=== PATIENT | female | born 1980 | race Caucasian/White ===

== ENCOUNTER 2017-05-11 13:01 | Observation (INO) | payer BC ==
[~2017-05-11] VITALS: Ht 167.6 cm; Wt 68.0 kg
[~2017-05-11 13:01] MED LIST: OMEG10007 PO; PRENTAB26 PO
[2017-05-11] MEDS ORDERED: SODIUM CHLORIDE 0.9% 500ML 500 ML IV STA (13:44)
[2017-05-11] MEDS ORDERED: METOPROLOL TARTRATE 1 MG/ML VIAL IV STA ×2 (13:44→14:52)
--- NOTE | 2017-05-11 13:57 | EMERGENCY ROOM VISIT NOTE ---
History Report prepared by Rosa: Teresita Dyer Under the Supervision of: Dr. Anna Marie Mueller M.D. First contact with patient: 13:39 Chief Complaint: SHORTNESS OF BREATH Stated Complaint: SOB, PALPITATIONS, DIZZY, BLACKOUTS Nursing Triage Summary: Dizzy and heart palpitations since . Numbness in fingers and feet. Shortness of breath at rest. Was supposed to see PCP yesterday but was feeling better so did not go to appt, today palpitations are back. Hx palpitations, but never symptomatic with them. History of Present Illness The patient is a 36 year old female who presents to the Emergency Room with complaints of intermittent heart palpitations for the past week and a half. The patient states that she has a history of palpations, noting that in the past she has been able to alleviate them with hydration. She states that since the Monday after she has intermittently been experiencing the palpitations. The patient states that she also feels dizzy and near syncopal. She denies ever losing consciousness. The patient states that each episode lasts for a few seconds and states that she sits down to alleviate them. The patient states that on Monday she began feeling short of breath. The patient's father states that the patient has a history of myocarditis when she was 11 years old. The patient denies any recent fever, excessive caffeine use, stimulant use, weight loss, or difficulty sleeping. Source of History: patient, parent (father) Onset: past week and a ahlf Position: other (heart) Quality: other (palpitations) Timing: intermittent Associated Symptoms: + SOB Review of Systems See HPI for pertinent positives & negatives. A total of 10 systems reviewed and were otherwise negative. Past Medical & Surgical Medical Problems: (1) Myocarditis (2) Vaginal delivery Surgical Problems: (1) History of appendectomy (2) S/P nasal surgery (3) [place] teeth removed Family History No pertinent family history stated. Social History Smoking Status: Never Smoker Smokeless Tobacco Use: No Alcohol Use: none Drug Use: none Marital Status: Housing Status: lives with significant other Occupation Status: employed Current/Historical Medications No Active Prescriptions or Reported Meds Allergies Coded Allergies: Cephalosporins (Verified Allergy, Mild, 05/11/17) Penicillins (Verified Allergy, Mild, HIVES, 05/11/17) Sulfa Drugs (Verified Allergy, Mild, 05/11/17) Physical Exam Vital Signs Date Time Temp Pulse Resp B/P (MAP) Pulse Ox O2 Delivery O2 Flow Rate FiO2 05/11/17 15:15 73 14 100 05/11/17 15:14 110/73 05/11/17 15:02 96 119/88 05/11/17 15:00 85 23 99 05/11/17 14:48 119/88 05/11/17 14:45 71 15 95 05/11/17 14:39 119/88 05/11/17 14:39 86 119/88 05/11/17 14:30 86 17 05/11/17 14:16 82 20 110/85 100 Room Air 05/11/17 14:10 119 136/82 05/11/17 14:08 122 136/82 100 Room Air 05/11/17 13:53 73 05/11/17 13:11 36.2 95 22 137/90 100 Room Air 05/11/17 13:11 100 Room Air Physical Exam Vital signs reviewed. General: Well-appearing female, in no significant distress. HEENT: No scleral icterus, PERRLA, neck supple. Atraumatic. Cardiovascular: Regular rate and rhythm, occasional ectopy. Pulmonary: Clear to auscultation bilaterally, normal work of breathing. Abdomen: Soft, nontender, nondistended, positive bowel sounds. Musculoskeletal: Atraumatic, no peripheral edema. Neurologic: Patient awake alert and oriented x 3, full strength in all 4 extremities. Cranial nerves 2 through 12 grossly intact. Skin: Warm, dry, no rash Medical Decision & Procedures ER Provider Diagnostic Interpretation: X-ray results as stated below per interpretation by me and the radiologist: SINGLE VIEW CHEST CLINICAL HISTORY: Palpitations. FINDINGS: An AP, portable, upright chest radiograph is compared to study dated 06/13/2007. The examination is mildly degraded by portable technique and patient rotation. The cardiomediastinal silhouette is unremarkable. The lungs and pleural spaces are clear. No pneumothorax is seen. The bony thorax is grossly intact. IMPRESSION: No active disease in the chest. Electronically signed by: Prabhu Penaloza M.D. 05/11/2017 2:16 PM Dictated Date/Time: 05/11/2017 2:15 PM Laboratory Results 05/11/17 13:58 Red Blood Count 5.16, Mean Corpuscular Volume 86.8, Mean Corpuscular Hemoglobin 31.0, Mean Corpuscular Hemoglobin Concent 35.7, Mean Platelet Volume 9.4, Neutrophils (%) (Auto) 58.3, Lymphocytes (%) (Auto) 34.6, Monocytes (%) (Auto) 5.8, Eosinophils (%) (Auto) 0.7, Basophils (%) (Auto) 0.4, Neutrophils # (Auto) 5.80, Lymphocytes # (Auto) 3.44, Monocytes # (Auto) 0.58, Eosinophils # (Auto) 0.07, Basophils # (Auto) 0.04 05/11/17 13:58 Test 05/11/17 13:58 05/11/17 14:01 05/11/17 14:19 White Blood Count 9.95 K/uL (4.8-10.8) Red Blood Count 5.16 M/uL (4.2-5.4) Hemoglobin 16.0 g/dL (12.0-16.0) Hematocrit 44.8 % (37-47) Mean Corpuscular Volume 86.8 fL (80-100) Mean Corpuscular Hemoglobin 31.0 pg (25-34) Mean Corpuscular Hemoglobin Concent 35.7 g/dl (32-36) Platelet Count 281 K/uL (130-400) Mean Platelet Volume 9.4 fL (7.4-10.4) Neutrophils (%) (Auto) 58.3 % Lymphocytes (%) (Auto) 34.6 % Monocytes (%) (Auto) 5.8 % Eosinophils (%) (Auto) 0.7 % Basophils (%) (Auto) 0.4 % Neutrophils # (Auto) 5.80 K/uL (1.4-6.5) Lymphocytes # (Auto) 3.44 K/uL (1.2-3.4) Monocytes # (Auto) 0.58 K/uL (0.11-0.59) Eosinophils # (Auto) 0.07 K/uL (0-0.5) Basophils # (Auto) 0.04 K/uL (0-0.2) RDW Standard Deviation 40.0 fL (36.4-46.3) RDW Coefficient of Variation 12.5 % (11.5-14.5) Immature Granulocyte % (Auto) 0.2 % Immature Granulocyte # (Auto) 0.02 K/uL (0.00-0.02) Anion Gap 8.0 mmol/L (3-11) Est Creatinine Clear Calc Drug Dose 83.3 ml/min Estimated GFR () 98.0 Estimated GFR (Non- 84.6 BUN/Creatinine Ratio 10.3 (10-20) Calcium Level 9.3 mg/dl (8.5-10.1) Magnesium Level 2.2 mg/dl (1.8-2.4) Total Bilirubin 0.6 mg/dl (0.2-1) Direct Bilirubin 0.1 mg/dl (0-0.2) Aspartate Amino Transf (AST/SGOT) 15 U/L (15-37) Alanine Aminotransferase (ALT/SGPT) 24 U/L (12-78) Alkaline Phosphatase 59 U/L (45-117) Total Creatine Kinase 113 U/L (26-192) Creatine Kinase MB 0.8 ng/ml (0.5-3.6) Creatine Kinase MB Ratio 0.7 (0-3.0) Pro-B-Type Natriuretic Peptide 30 pg/ml (0-450) Total Protein 7.9 gm/dl (6.4-8.2) Albumin 4.4 gm/dl (3.4-5.0) Thyroid Stimulating Hormone (TSH) 1.540 uIu/ml (0.300-4.500) Free Thyroxine 1.17 ng/dl (0.80-1.60) Free Triiodothyronine 3.20 pg/ml (2.30-4.20) Bedside D-Dimer 123 ng/mlFEU (0-450) Bedside Troponin I < 0.030 ng/ml (0-0.045) Urine Color YELLOW Urine Appearance CLEAR (CLEAR) Urine pH 8.0 (4.5-7.5) Urine Specific [place] 1.007 (1.000-1.030) Urine Protein NEG (NEG) Urine Glucose (UA) NEG (NEG) Urine Ketones NEG (NEG) Urine Occult Blood NEG (NEG) Urine Nitrite NEG (NEG) Urine Bilirubin NEG (NEG) Urine Urobilinogen NEG (NEG) Urine Leukocyte Esterase NEG (NEG) Laboratory results per my review. Medications Administered Medications (Trade) Dose Ordered Sig/Fahad Route Start Time Stop Time Status Last Admin Dose Admin Sodium Chloride 500 ml @ 999 mls/hr Q31M STAT IV 05/11/17 13:44 05/11/17 14:14 DC 05/11/17 14:15 999 MLS/HR Metoprolol Tartrate (Lopressor Iv) 2.5 mg NOW STAT IV 05/11/17 13:44 05/11/17 13:47 DC 05/11/17 14:10 2.5 MG Potassium Chloride (Kcl 10 Meq / Wtr) 10 meq NOW STAT IV 05/11/17 14:42 05/11/17 14:43 DC 05/11/17 15:17 10 MEQ Metoprolol Tartrate (Lopressor Iv) 5 mg NOW STAT IV 05/11/17 14:52 05/11/17 14:53 DC 05/11/17 15:02 5 MG Potassium Chloride (Klor-Con M10) 40 meq STK-MED ONCE .ROUTE 05/11/17 14:54 05/11/17 14:55 DC 05/11/17 15:05 40 MEQ ECG Indication: palpitations Rate (beats per minute): 83 Rhythm: sinus rhythm Findings: PAC, other (sinus pause) ED Course 1342: Past medical records reviewed. The patient was evaluated in room A4B. A complete history and physical examination was performed. 1344: Ordered Lopressor IV 2.5 mg IV, Sodium Chloride 500 ml @ 999 mls/hr IV. 1442: Ordered Potassium Chloride 40 meq PO, Potassium Chloride 10 meq IV. 1449: I reevaluated the patient and she is resting comfortably. I discussed the test results with her and I discussed the treatment plan. She verbalized complete understanding and agreement. Cardiology will be consulted. 1456: I discussed the patients case with Dr. Maxwell, Cardiology. He states that he will come evaluate the patient in the department. Medical Decision Differential diagnosis: Etiologies such as premature contractions, electrolyte abnormality, cardiac dysrhythmia, thyroid dysfunction, pulmonary embolism, infection, gastrointestinal, as well as others were entertained. This patient was evaluated and appeared to be in no significant distress. Physical examination reveals occasional tachycardia with ectopy. court monitor is consistent with a sinus rhythm with PACs, there is occasional runs of tachycardia. It appears to be a narrow complex. Laboratory work reveals only a mild hypokalemia at 3.1. Chest x-ray is clear. D-dimer and troponin are normal. She was given 2.5 mg of IV metoprolol with minimal effect. She was given additional 5 mg of IV metoprolol. The patient was discussed with Dr. Maxwell of cardiology who agreed to evaluate the patient in the emergency department. He has recommended evaluation by the internal medicine service for observation and he will likely managed the patient with beta blockers. Patient family are aware of the plan and agree. Medication Reconcilliation Current Medication List: was personally reviewed by me Consults Time Called: [phone] Consulting Physician: Dr. Maxwell, Cardiology Returned Call: [phone] I discussed the patients case with Dr. Maxwell, Cardiology. He states that he will come evaluate the patient in the department. Impression Primary Impression: Atrial tachycardia, paroxysmal Additional Impression: Hypokalemia Scribe Attestation The scribe's documentation has been prepared under my direction and personally reviewed by me in its entirety. I confirm that the note above accurately reflects all work, treatment, procedures, and medical decision making performed by me. Departure Information Prescriptions No Active Prescriptions or Reported Meds Referrals Keturah Juarez M.D. (MEDICAL) (PCP) Patient Instructions [facility] Problem Qualifiers
[2017-05-11] MEDS ORDERED: METOPROLOL TARTRATE 1 MG/ML VIAL ONE (14:07)
[2017-05-11 14:11] LABS: BASO % 0.4 %; BASO ABS # 0.04 K/uL (0-0.2); COMPLETE YES; EOS % 0.7 %; HEMATOCRIT 44.8 % (37-47); IG% 0.2 %; LYMPH % 34.6 %; LYMPH ABS # 3.44 K/uL (1.2-3.4); MEAN CELL VOLUME 86.8 fL (80-100); MEAN CORPUSCULAR HGB CONC 35.7 g/dl (32-36); MEAN PLATELET VOLUME 9.4 fL (7.4-10.4); MONO % 5.8 %; NEUT % 58.3 %; PLATELET COUNT 281 K/uL (130-400); RED BLOOD COUNT 5.16 M/uL (4.2-5.4); WHITE BLOOD COUNT 9.95 K/uL (4.8-10.8)
--- NOTE | 2017-05-11 14:18 | DIAGNOSTIC IMAGING REPORT ---
SINGLE VIEW CHEST CLINICAL HISTORY: Palpitations. FINDINGS: An AP, portable, upright chest radiograph is compared to study dated 06/13/2007. The examination is mildly degraded by portable technique and patient rotation. The cardiomediastinal silhouette is unremarkable. The lungs and pleural spaces are clear. No pneumothorax is seen. The bony thorax is grossly intact. IMPRESSION: No active disease in the chest. Electronically signed by: Prabhu Penaloza M.D. 05/11/2017 2:16 PM Dictated Date/Time: 05/11/2017 2:15 PM
[2017-05-11 14:21] LABS: POINT OF CARE TROPONIN I < 0.030 ng/ml (0-0.045)
[2017-05-11 14:29] LABS: BUN/CREATININE RATIO 10.3 (10-20); CALCIUM 9.3 mg/dl (8.5-10.1); CREATININE 0.89 mg/dl (0.60-1.20); MAGNESIUM 2.2 mg/dl (1.8-2.4); POTASSIUM 3.1 mmol/L (3.5-5.1)
[2017-05-11 14:32] LABS: URINE APPEARANCE CLEAR (CLEAR); URINE BILIRUBIN NEG (NEG); URINE COLOR YELLOW; URINE NITRITE NEG (NEG); URINE SPECIFIC GRAVITY 1.007 (1.000-1.030); UROBILINOGEN NEG (NEG); ZZUR CULT IF INDIC CLEAN CATCH NO
[2017-05-11 14:35] LABS: MANUAL MICROSCOPIC REQUIRED? NO; REVIEW REQ? NO
[2017-05-11 14:38] LABS: CKMB/CK RATIO 0.7 (0-3.0); THYROID STIMULATING HORMONE 1.54 uIu/ml (0.300-4.500)
[2017-05-11] MEDS ORDERED: POTASSIUM CHLORIDE 20 MEQ TABCR PO STA (14:42)
[2017-05-11] MEDS ORDERED: POTASSIUM CHLORIDE 10 MEQ / 100ML WTR IV STA (14:42)
[2017-05-11] MEDS ORDERED: POTASSIUM CHLORIDE 10 MEQ TABCR ONE (14:54)
[2017-05-11] MEDS ORDERED: ONDANSETRON INJ 2 MG/ML 2 ML VIAL IV PRN (16:30)
[2017-05-11] MEDS ORDERED: ACETAMINOPHEN 325 MG TAB PO PRN (16:30)
--- NOTE | 2017-05-11 16:46 | CARDIOLOGY CONSULTATION ---
DATE OF CONSULTATION: 05/11/2017 REFERRING PHYSICIAN: Dr. Anna Marie Mueller. REASON FOR CONSULTATION: Palpitations and PACs. CHIEF COMPLAINT ON ADMISSION: Palpitations. HISTORY OF PRESENT ILLNESS: Ms. Gomez is a 36-year-old female with a history of myocarditis at age 11 as well as longstanding palpitations. The patient states she developed significant palpitations the day after Thanksgiving. These palpitations have waxed and waned over the past 2 weeks. She notes approximately 3 near syncopal episodes during that time. These 3 episodes occurred while standing. They are often associated with chest fluttering. In the ER, her telemetry demonstrates frequent PACs with underlying sinus rhythm. There are short salvos of atrial tachycardia, which are nonsustained. The patient is aware of her heart rate and describes them as fluttering and palpitations. Denies any lightheadedness, dizziness, or near syncope currently. Describes her chest sensation as a fluttering. Denies any chest pain or pressure. Denies any exertional shortness of breath. She is quite active and exercises regularly. She performed a workout yesterday, which is her usual routine. She notes no restrictions, no shortness of breath, or exertional chest pain. No associated exertional lightheadedness, dizziness, syncope or near syncope. Her most recent resting 2D transthoracic echo was performed in 2014, demonstrating normal left ventricular systolic function without significant valvular heart disease. Currently, the patient is resting comfortably. Her family is at bedside. She offers no other concerns/complaints at this time. She has received a total of 7.5 mg of intravenous metoprolol in the ER with no significant change in her rhythm. REVIEW OF SYSTEMS: The pertinent positive noted above. A comprehensive 10-system review is otherwise negative. PAST MEDICAL HISTORY: 1. Myocarditis at age 11 attributed to a viral etiology. 2. depression. PAST SURGICAL HISTORY: 1. Heart biopsies at the time of myocarditis. 2. [place] tooth extraction. 3. Appendectomy. SOCIAL HISTORY: She is with 3 children. Occasional alcohol use. Denies any tobacco use. Denies any use of any stimulants or excessive caffeine intake. FAMILY HISTORY: Negative for premature CAD or sudden cardiac . ALLERGIES: CEPHALOSPORINS, PENICILLIN, AND SULFA. CURRENT OUTPATIENT MEDICATIONS: Proventil inhaler as needed. The patient denies any use of OTC medications. ECG ON ADMISSION: Sinus rhythm, nonspecific ST abnormality. CHEST X-RAY: No acute disease. LABORATORY DATA: White blood cell count 9.95, hemoglobin is 16.0, and platelet count is 281. D-dimer 123. Sodium 137, potassium 3.1, chloride 104, CO2 of 26, BUN is 9, and creatinine 0.89. Troponin undetectable. TSH 1.540. Urinalysis is normal. PHYSICAL EXAMINATION: VITAL SIGNS: Temperature is 36.2 degrees centigrade, pulse 73 beats per minute and regular, respiratory rate is 14 breaths per minute, blood pressure is 110/73, and SaO2 is 100% on room air. GENERAL: NAD, awake, alert and oriented x3. She is pleasant and cooperative. HEENT: Mucous membranes are moist. No scleral icterus. Conjunctivae pink. NECK: Supple. There is no JVD, no HJR, and no carotid bruit. HEART: Irregular with a normal S1 and S2. There is no murmur, rub or gallop. LUNGS: Clear without rales, rhonchi or wheeze. ABDOMEN: Soft and nontender. No rebound or guarding. Normal bowel sounds. EXTREMITIES: Warm and dry. There is no clubbing, cyanosis, or edema. NEUROLOGIC: Demonstrates no focal motor deficit. FINAL IMPRESSION: 1. A 36-year-old female with longstanding history of palpitations, demonstrates evidence of frequent paroxysmal atrial contractions, nonsustained episodes of paroxysmal atrial tachycardia currently. Symptoms have mildly improved with intravenous beta-kieran. 2. Three episodes of near syncope over the past 14 days -- occasional pauses, approximately 2 seconds noted on monitor. No recurrent dizziness associated with current episodes of nonsustained atrial tachycardia. 3. History of myocarditis at age 11. 4. Hypokalemia. PLAN AND RECOMMENDATIONS: Potassium will be replaced as needed. Repeat basic metabolic panel in the a.m. A repeat resting 2D transthoracic echo will also be performed. We will initiate low dose beta-kieran therapy and monitor overnight on telemetry. Lyme screening test will be performed for completeness. All questions were answered to the patient's satisfaction. Thank you for allowing me to take part in the care of your patient.
--- NOTE | 2017-05-11 16:50 | History and Physical ---
History & Physical Date & Time of Service: May 11, 2017 at 16:35 Chief Complaint: Sob, Palpitations, Dizzy, Blackouts Primary Care Physician: Keturah Juarez M.D. (MEDICAL) History of Present Illness Source: patient, clinic records, hospital records This is a 36yo F with no known PMH who presents with intermittent heart palpitations over the past 1.5 weeks. During a Thanksgiving family gathering, patient states that she noticed sudden onset palpitations associated with lightheadedness and "blacked out" vision. Denies LOC. Was able to sit down, drink water and palpitations resolved. Described the episode as lasting for a few seconds and before resolving. This past Monday, patient was at work when she experienced the same symptoms of palpitations, lightheadedness, near- syncope and nausea. Also endorses feeling SOB during episodes. They occurred intermittently for ~7 hours. [place] normal on Monday and was able to do a home workout without symptoms. Today, while at work, patient experienced another episode and had her co-worker bring her to ED for further evaluation. Currently endorses lightheadedness and palpitations with movement but is asymptomatic at rest. Denies near-syncope, visual changes, chest pain, SOB, abd pain, nausea, vomiting, LE swelling. States that she has had palpitations in the past but they just came and went without additional symptoms. Denies increased caffeine intake, stimulant use, increased anxiety or recent illness. Has had alcohol once in the past 2 weeks and it did not correlate with symptoms. Has history of myocarditis at age 11. No other cardiac history Past Medical/Surgical History Medical Problems: (1) Myocarditis Status: Resolved (2) Vaginal delivery Status: Resolved Surgical Problems: (1) History of appendectomy Status: Resolved (2) S/P nasal surgery Status: Resolved (3) [place] teeth removed Status: Resolved Family History Denies any family history of heart disease, arrhythmias, DM, kidney disease. Social History Smoking Status: Never Smoker Smokeless Tobacco Use: No Alcohol Use: occasionally Drug Use: none Marital Status: Housing status: lives with family Occupational Status: employed Immunizations History of Influenza Vaccine: Unknown History of Tetanus Vaccine?: Unknown Tetanus Immunization Date: Aug 04, 2007 History of Pneumococcal: Unknown History of Hepatitis B Vaccine: Unknown Multi-Drug Resistant Organisms History of MDRO: No Allergies Coded Allergies: Cephalosporins (Verified Allergy, Mild, 05/11/17) Penicillins (Verified Allergy, Mild, HIVES, 05/11/17) Sulfa Drugs (Verified Allergy, Mild, 05/11/17) Home Medications No Active Prescriptions or Reported Meds Review of Systems Ten systems reviewed and negative except as noted in the HPI. Physical Exam Vital Signs Date Time Temp Pulse Resp B/P (MAP) Pulse Ox O2 Delivery O2 Flow Rate FiO2 05/11/17 15:15 73 14 100 05/11/17 15:14 110/73 05/11/17 15:02 96 119/88 05/11/17 15:00 85 23 99 05/11/17 14:48 119/88 05/11/17 14:45 71 15 95 05/11/17 14:39 119/88 05/11/17 14:39 86 119/88 05/11/17 14:30 86 17 05/11/17 14:16 82 20 110/85 100 Room Air 05/11/17 14:10 119 136/82 05/11/17 14:08 122 136/82 100 Room Air 05/11/17 13:53 73 05/11/17 13:11 36.2 95 22 137/90 100 Room Air 05/11/17 13:11 100 Room Air General Appearance: WD/WN, + mild distress (anxious ) Head: normocephalic, atraumatic Eyes: normal inspection, PERRL, sclerae normal ENT: normal ENT inspection, hearing grossly normal, pharynx normal (moist mucous membranes) Neck: supple, thyroid normal, trachea midline Respiratory/Chest: chest non-tender, lungs clear, normal breath sounds, no respiratory distress, no accessory muscle use Cardiovascular: regular rate, rhythm, no murmur, normal peripheral pulses Abdomen/GI: non tender, soft, no organomegaly Back: normal inspection Extremities/Musculoskelatal: normal inspection, no calf tenderness, no pedal edema Neurologic/Psych: no motor/sensory deficits, alert, normal mood/affect, oriented x 3 Skin: normal color, warm/dry, no rash Diagnostics Laboratory Results Results Past 24 Hours Test 05/11/17 13:58 05/11/17 14:01 05/11/17 14:19 Range/Units White Blood Count 9.95 4.8-10.8 K/uL Red Blood Count 5.16 4.2-5.4 M/uL Hemoglobin 16.0 12.0-16.0 g/dL Hematocrit 44.8 37-47 % Mean Corpuscular Volume 86.8 80-100 fL Mean Corpuscular Hemoglobin 31.0 25-34 pg Mean Corpuscular Hemoglobin Concent 35.7 32-36 g/dl Platelet Count 281 130-400 K/uL Mean Platelet Volume 9.4 7.4-10.4 fL Neutrophils (%) (Auto) 58.3 % Lymphocytes (%) (Auto) 34.6 % Monocytes (%) (Auto) 5.8 % Eosinophils (%) (Auto) 0.7 % Basophils (%) (Auto) 0.4 % Neutrophils # (Auto) 5.80 1.4-6.5 K/uL Lymphocytes # (Auto) 3.44 1.2-3.4 K/uL Monocytes # (Auto) 0.58 0.11-0.59 K/uL Eosinophils # (Auto) 0.07 0-0.5 K/uL Basophils # (Auto) 0.04 0-0.2 K/uL RDW Standard Deviation 40.0 36.4-46.3 fL RDW Coefficient of Variation 12.5 11.5-14.5 % Immature Granulocyte % (Auto) 0.2 % Immature Granulocyte # (Auto) 0.02 0.00-0.02 K/uL Sodium Level 137 136-145 mmol/L Potassium Level 3.1 3.5-5.1 mmol/L Chloride Level 104 98-107 mmol/L Carbon Dioxide Level 26 21-32 mmol/L Anion Gap 8.0 3-11 mmol/L Blood Urea Nitrogen 9 7-18 mg/dl Creatinine 0.89 0.60-1.20 mg/dl Est Creatinine Clear Calc Drug Dose 83.3 ml/min Estimated GFR () 98.0 Estimated GFR (Non- 84.6 BUN/Creatinine Ratio 10.3 10-20 Random Glucose 105 70-99 mg/dl Calcium Level 9.3 8.5-10.1 mg/dl Magnesium Level 2.2 1.8-2.4 mg/dl Total Bilirubin 0.6 0.2-1 mg/dl Direct Bilirubin 0.1 0-0.2 mg/dl Aspartate Amino Transf (AST/SGOT) 15 15-37 U/L Alanine Aminotransferase (ALT/SGPT) 24 12-78 U/L Alkaline Phosphatase 59 45-117 U/L Total Creatine Kinase 113 26-192 U/L Creatine Kinase MB 0.8 0.5-3.6 ng/ml Creatine Kinase MB Ratio 0.7 0-3.0 Pro-B-Type Natriuretic Peptide 30 0-450 pg/ml Total Protein 7.9 6.4-8.2 gm/dl Albumin 4.4 3.4-5.0 gm/dl Thyroid Stimulating Hormone (TSH) 1.540 0.300-4.500 uIu/ml Free Thyroxine 1.17 0.80-1.60 ng/dl Free Triiodothyronine 3.20 2.30-4.20 pg/ml Bedside D-Dimer 123 0-450 ng/mlFEU Bedside Troponin I < 0.030 0-0.045 ng/ml Urine Color YELLOW Urine Appearance CLEAR CLEAR Urine pH 8.0 4.5-7.5 Urine Specific [place] 1.007 1.000-1.030 Urine Protein NEG NEG Urine Glucose (UA) NEG NEG Urine Ketones NEG NEG Urine Occult Blood NEG NEG Urine Nitrite NEG NEG Urine Bilirubin NEG NEG Urine Urobilinogen NEG NEG Urine Leukocyte Esterase NEG NEG CXR normal EKG Initial EKG at 13:44 Normal sinus rhythm with sinus arrhythmia Nonspecific ST and T wave abnormality Abnormal ECG When compared with ECG of 13-JUN-2007 10:56, T wave inversion now evident in Anterior leads Repeat EKG at 13:58 Atrial fibrillation at [address] abnormality Impression Assessment and Plan This is a 36yo F with no known PMH who presents with intermittent heart palpitations over the past 1.5 weeks. Atrial arrhythmia: -History of asymptomatic palpitations -Palpitations with near-syncope, lightheadedness, SOB over past 1.5 weeks -EKGs, monitor with frequent PACs, non-sustained atrial tachycardia today -Symptoms and rate improved with IV Lopressor -Replaced potassium. Recheck as replace as needed -BMP in AM -Cardio consulted: -Initiate low dose beta-kieran therapy and monitor overnight on telemetry -Echo -Lyme screening pending DVT Ppx: Genaro kebede Code status: FULL PCP: Larry Dispo: Plan to return home once medically stable Patient seen in collaboration with Dr. Dorman. Please see addendum. ATTENDING ADDENDUM care coordinated with ALISA Ash please refer to her notes for full details, I agree with her notes patient seen and examined, records reviewed by myself as well on exam, patient seen resting in bed, comfortable sinus rhythm, HR 50s in Tele monitor denies dizziness, chest pain, dyspnea, palpitations so far no other symptoms VS noted and reviewed oriented x3, not in distress, speaks in sentences with no effort nor accessory muscle use bradycardic, regular rhythm, no murmurs clear breath sounds bilaterally non distended, soft, nontender no bipedal edema, erythema, warmth no neuro deficits Hg 16 K 3.1 ASSESSMENT/PLAN> PALPITATIONS POSSIBLE PACS, ATRIAL TACHYCARDIA - echo pending replace K ff up Lyme screen - Metoprolol 12.5mg po BID started appreciate Cardiology SVC recommendations other diagnoses and plan of care as per ALISA Ash's notes Pérez Dorman MD Level of Care Telemetry Resuscitation Status FULL RESUSCITATION VTE Prophylaxis VTE Risk Assessment Done? Y/N: Yes Risk Level: Low Given or contraindicated: ZackEAlmas Stephenson Social Service Consult None Apply
[2017-05-11 16:59] LABS: LYME DISEASE AB IGM NEG (NEG)
[2017-05-11 17:00] LABS: LYME DISEASE AB IGG NEG (NEG)
[2017-05-11 18:45] VITALS: BP 121/74; PULSE 60; TEMP 36.6; O2SAT 100
[2017-05-11] MEDS ORDERED: IV FLUIDS COMPLETED PRN (20:45)
[2017-05-11] MEDS: METOPROLOL TARTRATE 25 MG TAB PO SCH (20:49)
[2017-05-11 21:57] VITALS: BP 121/74; PULSE 60; TEMP 36.6; O2SAT 100; Ht 167.6 cm; Wt 68.0 kg
[2017-05-12] VITALS: BP 99/58; PULSE 76; TEMP 36.9; O2SAT 97
[2017-05-12 03:34] VITALS: BP 109/64; PULSE 74; TEMP 36.9; O2SAT 97
[2017-05-12 06:02] LABS: HEMATOCRIT 42.5 % (37-47); MEAN CELL VOLUME 88.7 fL (80-100); MEAN CORPUSCULAR HEMOGLOBIN 29.6 pg (25-34); MEAN CORPUSCULAR HGB CONC 33.4 g/dl (32-36); MEAN PLATELET VOLUME 9.7 fL (7.4-10.4); PLATELET COUNT 257 K/uL (130-400); RED BLOOD COUNT 4.79 M/uL (4.2-5.4); WHITE BLOOD COUNT 5.39 K/uL (4.8-10.8)
[2017-05-12 06:28] LABS: BUN/CREATININE RATIO 9.9 (10-20); CALCIUM 8.9 mg/dl (8.5-10.1); CREATININE 0.8 mg/dl (0.60-1.20); POTASSIUM 4.2 mmol/L (3.5-5.1)
[2017-05-12 07:44] VITALS: BP 105/65; PULSE 51; TEMP 36.5; O2SAT 98
[2017-05-12] MEDS: METOPROLOL TARTRATE 25 MG TAB PO SCH (07:52)
--- NOTE | 2017-05-12 10:12 | ECHOCARDIOGRAM REPORT ---
*NOTICE TO RECEIVING LIBERTARIAN AGENCY This information is strictly Confidential and protected under [place] law. [place] law prohibits you from making any further disclosure of this information unless further disclosure is expressly permitted by the written consent of the person to whom it pertains or is authorized by law. A general authorization for the release of medical or other information is not sufficient for this purpose. Hospital accepts no responsibility if the information is made available to any other person, INCLUDING THE PATIENT. Interpretation Summary * Name: JAYLONJOHANNA Study Date: 05/12/2017 06:31 AM BP: 109/64 mmHg * Patient Location: [facility] HR: 74 * : 1980 (M/d/yyyy) Gender: Female Height: 66 in * Age: 36 yrs Ethnicity: CA Weight: 153 lb * Ordering Physician: Rosalio Maxwell DO * Performed By: Johanna Juarez RDCS * * Reason For Study: PALPITATIONS * BSA: 1.8 m2 * The study was technically adequate. * There is no comparison study available. * -- Conclusions -- * Ejection Fraction = 65-70%. * The left ventricular wall motion is normal. * Pulse wave TDI of the anterior and posterior mitral annulas demonstrates normal LV relaxation * No significant valvular disease. Procedure Details * A complete two-dimensional transthoracic echocardiogram was performed (2D, M-mode, Doppler and color flow Doppler). Left Ventricle * The left ventricle is normal in size. * There is no thrombus. * There is normal left ventricular wall thickness. * Ejection Fraction = 65-70%. * Left ventricular systolic function is normal. * The left ventricular wall motion is normal. Right Ventricle * The right ventricle is normal size. * The right ventricular systolic function is normal as assessed by tricuspid annular plane systolic excursion (TAPSE) (normal >1.5 cm). Atria * The left atrial size is normal. * Right atrial size is normal. * There is no evidence of atrial septal defect, but resolution does not allow assessment for a patent foramen ovale. Mitral Valve * The mitral valve is normal. * There is no mitral valve stenosis. * Significant mitral regurgitation is absent. Tricuspid Valve * The tricuspid valve is normal. * There is no tricuspid stenosis. * Significant tricuspid regurgitation is absent. Aortic Valve * The aortic valve is trileaflet. * Aortic stenosis is absent. * There is no significant aortic regurgitation. Pulmonic Valve * The pulmonary valve is not well seen, but the Doppler examination is normal without significant regurgitation or stenosis. Great Vessels * The aortic root and proximal ascending aorta are normal sized. Pericardium/Pleural * There is no pericardial effusion. Great Vessels * Normal inferior vena cava diameter and respiratory variation suggests normal central venous pressure. Left Ventricular Diastolic Function * Pulse wave TDI of the anterior and posterior mitral annulas demonstrates normal LV relaxation MMode 2D Measurements and Calculations IVSd 1.2 cm IVSs 1.6 cm LVIDd 4.1 cm LVIDs 2.1 cm LVPWd 1.0 cm LVPWs 1.7 cm IVS/LVPW 1.2 FS 47.9 % EDV(Teich) 73.1 ml ESV(Teich) 14.8 ml EF(Teich) 79.8 % EDV(cubed) 67.6 ml ESV(cubed) 9.5 ml EF(cubed) 85.9 % % IVS thick 31.7 % % LVPW thick 70.3 % LV mass(C)d 149.0 grams LV mass(C)dI 83.5 grams/m\S\2 LV mass(C)s 123.3 grams LV mass(C)sI 69.1 grams/m\S\2 SV(Teich) 58.4 ml SI(Teich) 32.7 ml/m\S\2 SV(cubed) 58.1 ml SI(cubed) 32.5 ml/m\S\2 ACS 1.3 cm LA dimension 2.7 cm asc Aorta Diam 1.8 cm LVOT diam 1.4 cm LVOT area 1.6 cm\S\2 LVAd ap4 31.4 cm\S\2 LVLd ap4 8.5 cm EDV(MOD-sp4) 96.9 ml EDV(sp4-el) 98.1 ml LVAs ap4 13.2 cm\S\2 LVLs ap4 6.6 cm ESV(MOD-sp4) 21.8 ml ESV(sp4-el) 22.2 ml EF(MOD-sp4) 77.5 % EF(sp4-el) 77.3 % LVAd ap2 30.1 cm\S\2 LVLd ap2 8.1 cm EDV(MOD-sp2) 91.2 ml EDV(sp2-el) 95.1 ml LVAs ap2 13.1 cm\S\2 LVLs ap2 6.2 cm ESV(MOD-sp2) 22.6 ml ESV(sp2-el) 23.2 ml EF(MOD-sp2) 75.2 % EF(sp2-el) 75.6 % LVLd %diff -5.58 % EDV(MOD-bp) 95.3 ml LVLs %diff -60 % ESV(MOD-bp) 22.6 ml EF(MOD-bp) 76.3 % SV(MOD-sp4) 75.1 ml SI(MOD-sp4) 42.1 ml/m\S\2 SV(MOD-sp2) 68.6 ml SI(MOD-sp2) 38.4 ml/m\S\2 SV(MOD-bp) 72.7 ml SI(MOD-bp) 40.7 ml/m\S\2 SV(sp4-el) 75.9 ml SI(sp4-el) 42.5 ml/m\S\2 SV(sp2-el) 71.8 ml SI(sp2-el) 40.2 ml/m\S\2 Doppler Measurements and Calculations MV E max jerry 101.4 cm/sec MV A max jerry 45.3 cm/sec MV E/A 2.2 MV dec time 0.19 sec Ao V2 max 165.9 cm/sec Ao max PG 11.0 mmHg Ao max PG (full) 3.1 mmHg SULEMA(V,A) 1.4 cm\S\2 SULEMA(V,D) 1.4 cm\S\2 LV V1 max PG 7.9 mmHg LV V1 max 140.2 cm/sec PA V2 max 76.0 cm/sec PA max PG 2.3 mmHg TR max jerry 219.4 cm/sec
--- NOTE | 2017-05-12 11:10 | Cardiology Follow-Up ---
Subjective General Date of Service: May 12, 2017. Pt evaluation today including: conversation w/ patient, conversation w/ family , physical exam, chart review, lab review, review of studies, review of inpatient medication list History of Present Illness The patient is a 36 year old female seen in follow-up. No recurrent atrial tachycardia overnight. Sinus rhythm with sinus arrhythmia on telemetry. Patient is feeling much better. Palpitations have resolved. Repeat potassium level within normal limits this morning. She did not receive her a.m. dose of metoprolol due to bradycardia. Denies any lightheadedness or dizziness. 2-D echocardiogram within normal limits. Allergies Coded Allergies: Cephalosporins (Verified Allergy, Mild, 05/11/17) Penicillins (Verified Allergy, Mild, HIVES, 05/11/17) Sulfa Drugs (Verified Allergy, Mild, 05/11/17) Social History Smoking Status: Never Smoker Hx Tobacco Use In Past Year?: No Hx Alcohol Use - Type And Amou: Yes (wine/beer, occasional) Hx Substance Use - Type And Am: No Problem List Medical Problems: (1) Atrial tachycardia, paroxysmal Status: Acute (2) Hypokalemia Status: Acute Review of Systems Respiratory: No cough, No sputum, No wheezing, No shortness of breath, No dyspnea on exertion, No dyspnea at rest, No hemoptysis Cardiac: No chest pain, No orthopnea, No PND, No edema, No claudication, No palpitations Physical Exam Vital Signs Last Vital Signs Documentation Date Time Temp Pulse Resp B/P (MAP) Pulse Ox O2 Delivery O2 Flow Rate FiO2 05/12/17 08:00 Room Air 05/12/17 07:44 36.5 51 16 105/65 (78) 98 Physical Exam Constitutional: General Apperance: heathly-appearing Level of Distress: NAD Head: normocephalic, atraumatic Neck: supple, trachea midline Lungs: Auscultation: breath sounds normal, no wheezing, no rales/crackles, no rhonchi Cardiovascular: Heart Auscultation: RRR, normal S1, normal S2, no murmurs, no rubs, no gallops Peripheral Pulses: Carotid Pulse: normal on the left, normal on the right Radial Pulse: normal on the left, normal on the right Abdomen: Bowel Sounds: normal Inspection & Palpation: soft, non-distended, no tenderness, guarding & rebound Extremities: no cyanosis, no edema, no clubbing, no ulcers Neurologic: Gait & Station: pertinent finding (no focal deficit) Cranial Nerves: grossly intact Assessment and Plan Assessment and Plan FINAL IMPRESSION: 1. A 36-year-old female admitted with palpitations secondary to paroxysmal atrial tachycardia and sensed atrial ectopy. -PACs and paroxysmal atrial tachycardia have resolved with potassium supplementation and low dose beta kieran therapy 2. History of myocarditis at age 11. 3. Hypokalemia. PLAN AND RECOMMENDATIONS: I had a long discussion with the patient regarding the natural history, pathophysiology of atrial tachycardia, PACs, as well as the results of her normal resting 2-D transthoracic echo. Currently in sinus rhythm with sinus arrhythmia. Her palpitations have resolved. Encouraged her to increase intake of foods containing potassium. Encouraged her to maintain adequate hydration and avoid excessive caffeine intake. Resting sinus bradycardia noted patient currently asymptomatic. She'll be given a prescription for low-dose metoprolol tartrate and utilize this medication on an as-needed basis up to twice daily. All questions answered to satisfaction of both the patient and her . I will arrange for outpatient cardiology follow-up in 2 weeks. We will sign off at this time. Thank you for allowing me to participate in the care of your patient. Laboratory Results Last 24 Hours Test 05/11/17 13:58 05/11/17 14:01 05/11/17 14:19 05/11/17 21:03 White Blood Count 9.95 K/uL Red Blood Count 5.16 M/uL Hemoglobin 16.0 g/dL Hematocrit 44.8 % Mean Corpuscular Volume 86.8 fL Mean Corpuscular Hemoglobin 31.0 pg Mean Corpuscular Hemoglobin Concent 35.7 g/dl Platelet Count 281 K/uL Mean Platelet Volume 9.4 fL Neutrophils (%) (Auto) 58.3 % Lymphocytes (%) (Auto) 34.6 % Monocytes (%) (Auto) 5.8 % Eosinophils (%) (Auto) 0.7 % Basophils (%) (Auto) 0.4 % Neutrophils # (Auto) 5.80 K/uL Lymphocytes # (Auto) 3.44 K/uL Monocytes # (Auto) 0.58 K/uL Eosinophils # (Auto) 0.07 K/uL Basophils # (Auto) 0.04 K/uL RDW Standard Deviation 40.0 fL RDW Coefficient of Variation 12.5 % Immature Granulocyte % (Auto) 0.2 % Immature Granulocyte # (Auto) 0.02 K/uL Sodium Level 137 mmol/L Potassium Level 3.1 mmol/L 4.0 mmol/L Chloride Level 104 mmol/L Carbon Dioxide Level 26 mmol/L Anion Gap 8.0 mmol/L Blood Urea Nitrogen 9 mg/dl Creatinine 0.89 mg/dl Est Creatinine Clear Calc Drug Dose 83.3 ml/min Estimated GFR () 98.0 Estimated GFR (Non- 84.6 BUN/Creatinine Ratio 10.3 Random Glucose 105 mg/dl Calcium Level 9.3 mg/dl Magnesium Level 2.2 mg/dl Total Bilirubin 0.6 mg/dl Direct Bilirubin 0.1 mg/dl Aspartate Amino Transf (AST/SGOT) 15 U/L Alanine Aminotransferase (ALT/SGPT) 24 U/L Alkaline Phosphatase 59 U/L Total Creatine Kinase 113 U/L Creatine Kinase MB 0.8 ng/ml Creatine Kinase MB Ratio 0.7 Pro-B-Type Natriuretic Peptide 30 pg/ml Total Protein 7.9 gm/dl Albumin 4.4 gm/dl Thyroid Stimulating Hormone (TSH) 1.540 uIu/ml Free Thyroxine 1.17 ng/dl Free Triiodothyronine 3.20 pg/ml Lyme Disease IgG Antibody NEG Lyme Disease IgM Antibody NEG Bedside D-Dimer 123 ng/mlFEU Bedside Troponin I < 0.030 ng/ml Urine Color YELLOW Urine Appearance CLEAR Urine pH 8.0 Urine Specific [place] 1.007 Urine Protein NEG Urine Glucose (UA) NEG Urine Ketones NEG Urine Occult Blood NEG Urine Nitrite NEG Urine Bilirubin NEG Urine Urobilinogen NEG Urine Leukocyte Esterase NEG Test 05/12/17 05:30 White Blood Count 5.39 K/uL Red Blood Count 4.79 M/uL Hemoglobin 14.2 g/dL Hematocrit 42.5 % Mean Corpuscular Volume 88.7 fL Mean Corpuscular Hemoglobin 29.6 pg Mean Corpuscular Hemoglobin Concent 33.4 g/dl RDW Standard Deviation 41.0 fL RDW Coefficient of Variation 12.6 % Platelet Count 257 K/uL Mean Platelet Volume 9.7 fL Sodium Level 141 mmol/L Potassium Level 4.2 mmol/L Chloride Level 109 mmol/L Carbon Dioxide Level 26 mmol/L Anion Gap 6.0 mmol/L Blood Urea Nitrogen 8 mg/dl Creatinine 0.80 mg/dl Est Creatinine Clear Calc Drug Dose 92.7 ml/min Estimated GFR () 111.5 Estimated GFR (Non- 96.2 BUN/Creatinine Ratio 9.9 Random Glucose 89 mg/dl Calcium Level 8.9 mg/dl
[2017-05-12] MEDS ORDERED: METOPROLOL TARTRATE 25 MG TAB PO PRN (11:15)
[2017-05-12 11:38] VITALS: BP 108/68; PULSE 59; TEMP 36.5; O2SAT 97
--- NOTE | 2017-05-12 13:45 | Progress Note ---
Medicine Progress Note Date & Time of Visit: May 12, 2017 at 13:25. Subjective Pt was seen and examined Lying in bed comfortable with at bedside Pt said that she feels fine She denies any palpitation, dizziness, SOB and chest pain Objective Last 8 Hrs Date Time Temp Pulse Resp B/P (MAP) Pulse Ox O2 Delivery O2 Flow Rate FiO2 05/12/17 12:00 Room Air 05/12/17 11:38 36.5 59 18 108/68 (81) 97 Room Air 05/12/17 08:00 Room Air 05/12/17 07:44 36.5 51 16 105/65 (78) 98 Room Air Physical Exam: General- No acute distress Head- atraumatic Eyes- PERRL, EOMI ENT- oropharynx clear Neck- supple, no JVD Lungs- clear to auscultation Heart- No murmur Abdomen- normal bowel sounds Extremities- no pretibial edema, no calf tenderness Neuro- alert, oriented x 3; PERRL, EOMI Skin- warm & dry Laboratory Results: Last 24 Hours Test 05/11/17 13:58 05/11/17 14:01 05/11/17 14:19 05/11/17 21:03 White Blood Count 9.95 K/uL Red Blood Count 5.16 M/uL Hemoglobin 16.0 g/dL Hematocrit 44.8 % Mean Corpuscular Volume 86.8 fL Mean Corpuscular Hemoglobin 31.0 pg Mean Corpuscular Hemoglobin Concent 35.7 g/dl Platelet Count 281 K/uL Mean Platelet Volume 9.4 fL Neutrophils (%) (Auto) 58.3 % Lymphocytes (%) (Auto) 34.6 % Monocytes (%) (Auto) 5.8 % Eosinophils (%) (Auto) 0.7 % Basophils (%) (Auto) 0.4 % Neutrophils # (Auto) 5.80 K/uL Lymphocytes # (Auto) 3.44 K/uL Monocytes # (Auto) 0.58 K/uL Eosinophils # (Auto) 0.07 K/uL Basophils # (Auto) 0.04 K/uL RDW Standard Deviation 40.0 fL RDW Coefficient of Variation 12.5 % Immature Granulocyte % (Auto) 0.2 % Immature Granulocyte # (Auto) 0.02 K/uL Sodium Level 137 mmol/L Potassium Level 3.1 mmol/L 4.0 mmol/L Chloride Level 104 mmol/L Carbon Dioxide Level 26 mmol/L Anion Gap 8.0 mmol/L Blood Urea Nitrogen 9 mg/dl Creatinine 0.89 mg/dl Est Creatinine Clear Calc Drug Dose 83.3 ml/min Estimated GFR () 98.0 Estimated GFR (Non- 84.6 BUN/Creatinine Ratio 10.3 Random Glucose 105 mg/dl Calcium Level 9.3 mg/dl Magnesium Level 2.2 mg/dl Total Bilirubin 0.6 mg/dl Direct Bilirubin 0.1 mg/dl Aspartate Amino Transf (AST/SGOT) 15 U/L Alanine Aminotransferase (ALT/SGPT) 24 U/L Alkaline Phosphatase 59 U/L Total Creatine Kinase 113 U/L Creatine Kinase MB 0.8 ng/ml Creatine Kinase MB Ratio 0.7 Pro-B-Type Natriuretic Peptide 30 pg/ml Total Protein 7.9 gm/dl Albumin 4.4 gm/dl Thyroid Stimulating Hormone (TSH) 1.540 uIu/ml Free Thyroxine 1.17 ng/dl Free Triiodothyronine 3.20 pg/ml Lyme Disease IgG Antibody NEG Lyme Disease IgM Antibody NEG Bedside D-Dimer 123 ng/mlFEU Bedside Troponin I < 0.030 ng/ml Urine Color YELLOW Urine Appearance CLEAR Urine pH 8.0 Urine Specific [place] 1.007 Urine Protein NEG Urine Glucose (UA) NEG Urine Ketones NEG Urine Occult Blood NEG Urine Nitrite NEG Urine Bilirubin NEG Urine Urobilinogen NEG Urine Leukocyte Esterase NEG Test 05/12/17 05:30 White Blood Count 5.39 K/uL Red Blood Count 4.79 M/uL Hemoglobin 14.2 g/dL Hematocrit 42.5 % Mean Corpuscular Volume 88.7 fL Mean Corpuscular Hemoglobin 29.6 pg Mean Corpuscular Hemoglobin Concent 33.4 g/dl RDW Standard Deviation 41.0 fL RDW Coefficient of Variation 12.6 % Platelet Count 257 K/uL Mean Platelet Volume 9.7 fL Sodium Level 141 mmol/L Potassium Level 4.2 mmol/L Chloride Level 109 mmol/L Carbon Dioxide Level 26 mmol/L Anion Gap 6.0 mmol/L Blood Urea Nitrogen 8 mg/dl Creatinine 0.80 mg/dl Est Creatinine Clear Calc Drug Dose 92.7 ml/min Estimated GFR () 111.5 Estimated GFR (Non- 96.2 BUN/Creatinine Ratio 9.9 Random Glucose 89 mg/dl Calcium Level 8.9 mg/dl Assessment & Plan Paroxysmal atrial tachycardia Present with palpitations with near-syncope, lightheadedness, SOB over past 1.5 weeks Received IV Lopressor in the ER with improved the rate Lyme screening negative cardio on board recommended to discharge on low dose metoprolol prn Follow up with cardiology as an outpatient in 2 weeks ECHO showed * Ejection Fraction = 65-70%. * The left ventricular wall motion is normal. * Pulse wave TDI of the anterior and posterior mitral annulas demonstrates normal LV relaxation * No significant valvular disease. Hypokalemia K stable today advised pt to increase potassium in diet DVT px on SCDs CODE STATUS FULL CODE Disposition Discharge home today Current Inpatient Medications: Current Inpatient Medications Medications (Trade) Dose Ordered Sig/Fahad Route Start Time Stop Time Status Last Admin Dose Admin Acetaminophen (Tylenol Tab) 650 mg Q4H PRN PO 05/11/17 16:30 06/10/17 16:29 05/12/17 07:56 650 MG Ondansetron HCl (Zofran Inj) 4 mg Q6H PRN IV 05/11/17 16:30 06/10/17 16:29 Miscellaneous (Iv Fluids Completed) 1 ea PRN PRN N/A 05/11/17 20:45 05/11/18 20:44 Metoprolol Tartrate (Lopressor Tab) 12.5 mg BID PRN PO 05/12/17 11:15 06/11/17 11:14
[2017-05-12] MEDS ORDERED: LPR25 PO ×2 (13:48→14:22)
--- NOTE | 2017-05-12 13:56 | Discharge Instructions ---
Discharge Instructions Date of Service May 12, 2017. Admission Reason for Admission: Atrial Tachycardia, Paroxysmal, Hypokalemia Discharge Discharge Diagnosis / Problem: paroxysmal atrial tachycardia, Hypokalemia Discharge Goals Goal(s): Decrease discomfort, Improve function, Improve disease control Activity Recommendations Activity Limitations: resume your previous activity . Instructions / Follow-Up Instructions / Follow-Up Follow up with your primary care provider Dr. Juarez on 05/18 @ 11:05 AM Follow up with Cardiology Dr. Maxwell on 05/26 @ 9:45 AM Increase potassium intake in your diet Monitor BMP to check electrolytes Current Hospital Diet Patient's current hospital diet: AHA Diet (Heart Healthy) Discharge Diet Recommended Diet: Regular Diet Pending Studies Studies pending at discharge: no Medical Emergencies . Who to Call and When: Medical Emergencies: If at any time you feel your situation is an emergency, please call 911 immediately. . Non-Emergent Contact Non-Emergency issues call your: Primary Care Provider Call Non-Emergent contact if: you have any medication questions . . "Provider Documentation" section prepared by Karin Condon. . VTE Core Measure Inpt VTE Proph given/why not?: Derek Stephenson
[2017-05-12 13:58] VITALS: BP 108/68; PULSE 59; TEMP 36.5; O2SAT 97
--- NOTE | 2017-05-15 08:00 | Discharge Summary ---
Discharge Summary Date of Service May 15, 2017. Discharge Summary Admission Date: May 11, 2017 at 16:26 Discharge Date: May 12, 2017 Discharge Disposition: Home Principal Diagnosis: paroxysmal atrial tachycardia Secondary Diagnoses/Problems: Hypokalemia Procedures: [~ rep ct add3]] SINGLE VIEW CHEST CLINICAL HISTORY: Palpitations. FINDINGS: An AP, portable, upright chest radiograph is compared to study dated 06/13/2007. The examination is mildly degraded by portable technique and patient rotation. The cardiomediastinal silhouette is unremarkable. The lungs and pleural spaces are clear. No pneumothorax is seen. The bony thorax is grossly intact. IMPRESSION: No active disease in the chest. Electronically signed by: Prabhu Penaloza M.D. 05/11/2017 2:16 PM Dictated Date/Time: 05/11/2017 2:15 PM Interpretation Summary * Name: JAYLONJOHANNA Study Date: 05/12/2017 06:31 AM BP: 109/64 mmHg * Patient Location: [facility] HR: 74 * : 1980 (M/d/yyyy) Gender: Female Height: 66 in * Age: 36 yrs Ethnicity: [place] Weight: 153 lb * Ordering Physician: Rosalio Maxwell DO * Performed By: Johanna Juarez RDCS * * Reason For Study: PALPITATIONS * BSA: 1.8 m2 * The study was technically adequate. * There is no comparison study available. * -- Conclusions -- * Ejection Fraction = 65-70%. * The left ventricular wall motion is normal. * Pulse wave TDI of the anterior and posterior mitral annulas demonstrates normal LV relaxation * No significant valvular disease. Procedure Details * A complete two-dimensional transthoracic echocardiogram was performed (2D, M-mode, Doppler and color flow Doppler). Left Ventricle * The left ventricle is normal in size. * There is no thrombus. * There is normal left ventricular wall thickness. * Ejection Fraction = 65-70%. * Left ventricular systolic function is normal. * The left ventricular wall motion is normal. Right Ventricle * The right ventricle is normal size. * The right ventricular systolic function is normal as assessed by tricuspid annular plane systolic excursion (TAPSE) (normal >1.5 cm). Atria * The left atrial size is normal. * Right atrial size is normal. * There is no evidence of atrial septal defect, but resolution does not allow assessment for a patent foramen ovale. Mitral Valve * The mitral valve is normal. * There is no mitral valve stenosis. * Significant mitral regurgitation is absent. Tricuspid Valve * The tricuspid valve is normal. * There is no tricuspid stenosis. * Significant tricuspid regurgitation is absent. Aortic Valve * The aortic valve is trileaflet. * Aortic stenosis is absent. * There is no significant aortic regurgitation. Pulmonic Valve * The pulmonary valve is not well seen, but the Doppler examination is normal without significant regurgitation or stenosis. Great Vessels * The aortic root and proximal ascending aorta are normal sized. Pericardium/Pleural * There is no pericardial effusion. Great Vessels * Normal inferior vena cava diameter and respiratory variation suggests normal central venous pressure. Left Ventricular Diastolic Function * Pulse wave TDI of the anterior and posterior mitral annulas demonstrates normal LV relaxation Consultations: Cardio Medication Reconciliation New Medications: Metoprolol Tartrate (Lopressor) 25 Mg Tab 12.5 MG PO BID PRN for PALPITATION for 30 Days, TAB Admission Information HPI (per Admitting provider): This is a 36yo F with no known PMH who presents with intermittent heart palpitations over the past 1.5 weeks. During a Thanksgiving family gathering, patient states that she noticed sudden onset palpitations associated with lightheadedness and "blacked out" vision. Denies LOC. Was able to sit down, drink water and palpitations resolved. Described the episode as lasting for a few seconds and before resolving. This past Monday, patient was at work when she experienced the same symptoms of palpitations, lightheadedness, near- syncope and nausea. Also endorses feeling SOB during episodes. They occurred intermittently for ~7 hours. [place] normal on Monday and was able to do a home workout without symptoms. Today, while at work, patient experienced another episode and had her co-worker bring her to ED for further evaluation. Currently endorses lightheadedness and palpitations with movement but is asymptomatic at rest. Denies near-syncope, visual changes, chest pain, SOB, abd pain, nausea, vomiting, LE swelling. States that she has had palpitations in the past but they just came and went without additional symptoms. Denies increased caffeine intake, stimulant use, increased anxiety or recent illness. Has had alcohol once in the past 2 weeks and it did not correlate with symptoms. Has history of myocarditis at age 11. No other cardiac history Physical Exam (per Admitting): General Appearance: WD/WN, + mild distress (anxious ) Head: normocephalic, atraumatic Eyes: normal inspection, PERRL, sclerae normal ENT: normal ENT inspection, hearing grossly normal, pharynx normal (moist mucous membranes) Neck: supple, thyroid normal, trachea midline Respiratory/Chest: chest non-tender, lungs clear, normal breath sounds, no respiratory distress, no accessory muscle use Cardiovascular: regular rate, rhythm, no murmur, normal peripheral pulses Abdomen/GI: non tender, soft, no organomegaly Back: normal inspection Extremities/Musculoskelatal: normal inspection, no calf tenderness, no pedal edema Neurologic/Psych: no motor/sensory deficits, alert, normal mood/affect, oriented x 3 Skin: normal color, warm/dry, no rash Hospital Course Paroxysmal atrial tachycardia Present with palpitations with near-syncope, lightheadedness, SOB over past 1.5 weeks Received IV Lopressor in the ER with improved the rate Lyme screening negative cardio on board recommended to discharge on low dose metoprolol prn Follow up with cardiology as an outpatient in 2 weeks ECHO showed * Ejection Fraction = 65-70%. * The left ventricular wall motion is normal. * Pulse wave TDI of the anterior and posterior mitral annulas demonstrates normal LV relaxation * No significant valvular disease. Hypokalemia K stable today advised pt to increase potassium in diet DVT px on SCDs CODE STATUS FULL CODE Disposition Discharge home today Total time spent on discharge = 35 minutes This includes examination of the patient, discharge planning, medication reconciliation, and communication with other providers. Discharge Instructions Discharge Instructions Date of Service May 12, 2017. Admission Reason for Admission: Atrial Tachycardia, Paroxysmal, Hypokalemia Discharge Discharge Diagnosis / Problem: paroxysmal atrial tachycardia, Hypokalemia Discharge Goals Goal(s): Decrease discomfort, Improve function, Improve disease control Activity Recommendations Activity Limitations: resume your previous activity . Instructions / Follow-Up Instructions / Follow-Up Follow up with your primary care provider Dr. Juarez on 05/18 @ 11:05 AM Follow up with Cardiology Dr. Maxwell on 05/26 @ 9:45 AM Increase potassium intake in your diet Monitor BMP to check electrolytes Current Hospital Diet Patient's current hospital diet: AHA Diet (Heart Healthy) Discharge Diet Recommended Diet: Regular Diet Pending Studies Studies pending at discharge: no Medical Emergencies . Who to Call and When: Medical Emergencies: If at any time you feel your situation is an emergency, please call 911 immediately. . Non-Emergent Contact Non-Emergency issues call your: Primary Care Provider Call Non-Emergent contact if: you have any medication questions . . "Provider Documentation" section prepared by Karin Condon. . VTE Core Measure Inpt VTE Proph given/why not?: Derek Stephenson Additional Copies To Ketruah Juarez M.D. (MEDICAL)
== END 2017-05-12 14:30 | disposition home or self-care (01) ==
LOC: C.EDB 13:02 → C.MED 16:26 → ENRESERV 18:01
PROVIDERS: ADMIT Internal Medicine; ATTEND Internal Medicine
DX: I47.1 Supraventricular tachycardia (principal); E87.6 Hypokalemia